=== PATIENT | female | born 1980 | race Caucasian/White ===

== ENCOUNTER 2024-08-31 10:13 | Outpatient (CLI) | payer BC, SELFPAY ==
[2024-08-31 10:55] LABS: TSH (W/Ref FT4) 1.34 uIU/mL (0.36-3.74)
[2024-08-31 21:01] LABS: Estradiol 15 pg/mL (See Note)
== END 2024-08-31 10:14 | disposition home or self-care (01) ==
LOC: LBO 10:13
PROVIDERS: PCP Family Medicine; Visit Provider Obstetrics & Gynecology
DX: N95.1 Menopausal and female climacteric states (principal); E03.9 Hypothyroidism, unspecified
CPT/HCPCS: 36415; 82670; 83001; 84443